=== PATIENT | female | born 1975 | race Asian ===

== ENCOUNTER → 2017-05-10 | Outpatient (CLI) | payer MEDICAID ==
[~2017-05-10] MED LIST: CHOL500050 PO; NAPR500T4 PO; OXYC10TA6 PO; no meds per pt.
== END | disposition home or self-care (01) ==
LOC: CVU 08:41
PROVIDERS: ATTEND Family Medicine
DX: I83.813 Varicose veins of bilateral lower extremities with pain (principal); R06.02 Shortness of breath
CPT/HCPCS: 71020; 93971

== ENCOUNTER 2017-07-10 09:52 | Day surgery (SDC) | payer MEDICAID ==
[~2017-07-10] VITALS: Ht 152.4 cm; Wt 66.6 kg
[~2017-07-10 09:52] MED LIST changes: +No meds per pt.
[2017-07-10 10:26] VITALS: BP 114/81
[2017-07-10] MEDS ORDERED: LACTATED RINGERS 1,000 ML IV SCH (10:28)
[2017-07-10] MEDS ORDERED: LIDOCAINE 1%, 2ML SQ PRN (10:30)
[2017-07-10] MEDS ORDERED: LIDOCAINE 1%, 2ML ONE (10:32)
[2017-07-10] MEDS ORDERED: LIDOCAINE 1%, 50ML ONE (12:28)
[2017-07-10] MEDS ORDERED: HEPARIN 1,000 UNITS/ML, 10ML ONE (12:28)
[2017-07-10] MEDS ORDERED: SODIUM BICARBONATE 1 MEQ/ML, 50ML VIAL ONE (12:28)
[2017-07-10] MEDS ORDERED: EPINEPHRINE 1 MG/ML, 1ML ONE (12:29)
[2017-07-10] MEDS ORDERED: MIDAZOLAM 1 MG/ML, 2ML ONE (12:31)
[2017-07-10] MEDS ORDERED: FENTANYL PF 100 MCG/2ML ONE ×3 (12:33→14:28)
[2017-07-10] MEDS ORDERED: PROPOFOL 10 MG/ML, 20ML ONE (12:52)
[2017-07-10] MEDS ORDERED: ONDANSETRON 2MG/ML, 2ML ONE (12:52)
[2017-07-10] MEDS ORDERED: SUCCINYLCHOLINE 20 MG/ML, 10ML ONE (12:52)
[2017-07-10] MEDS ORDERED: CEFAZOLIN 1,000 MG ONE (12:52)
[2017-07-10] MEDS ORDERED: DEXAMETHASONE 4 MG/ML, 1ML ONE (12:52)
[2017-07-10] MEDS ORDERED: ONDANSETRON 2MG/ML, 2ML IVPush PRN (13:00)
[2017-07-10] MEDS ORDERED: ALBUTEROL SULFATE 2.5 MG/3 ML NPPB PRN (13:00)
[2017-07-10] MEDS ORDERED: MEPERIDINE/PF 25MG/0.5ML IVPush PRN (13:00)
[2017-07-10] MEDS ORDERED: PROMETHAZINE 12.5 MG SUPP PR PRN (13:00)
[2017-07-10] MEDS ORDERED: MIDAZOLAM 1 MG/ML, 2ML IV PRN (13:00)
[2017-07-10] MEDS ORDERED: OXYcodone 5 MG/5 ML ORAL.SOL UDC PO PRN (13:00)
[2017-07-10] MEDS ORDERED: hydrALAzine 20 MG/ML, 1ML IV PRN (13:00)
[2017-07-10] MEDS ORDERED: HYDROmorphone 1 MG/ML, 1ML IV PRN (13:00)
[2017-07-10] MEDS ORDERED: LABETALOL 5MG/ML, 20ML IV PRN (13:00)
[2017-07-10] MEDS ORDERED: ACETAMINOPHEN 325 MG TABLET PO PRN (13:00)
[2017-07-10] MEDS ORDERED: ACETAMINOPHEN 650 MG/20.3 ML UDC ONE (14:28)
[2017-07-10] MEDS ORDERED: OXYcodone 5 MG/5 ML ORAL.SOL UDC ONE (14:28)
[2017-07-10] MEDS: FENTANYL PF 100 MCG/2ML IV PRN ×2 (14:30→14:45)
[2017-07-10] MEDS ORDERED: ONDANSETRON 2MG/ML, 2ML IVPush ONE (18:00)
== END 2017-07-10 18:15 | disposition home or self-care (01) ==
LOC: OUT 09:52
PROVIDERS: ATTEND Surgery
DX: I83.812 Varicose veins of left lower extremity with pain (principal); I87.8 Other specified disorders of veins
CPT/HCPCS: 36415; 36475; 37765; 84703; J0171; J0330; J0690; J1100; J1644; J2250; J2405; J2704; J3010; J3490; J7120; C1888

== ENCOUNTER → 2017-08-22 | Outpatient (CLI) | payer MEDICAID ==
[~2017-08-22] MED LIST changes: +NAPR-685 PO; -NAPR500T4 PO
== END | disposition home or self-care (01) ==
LOC: CVU 08:48
PROVIDERS: ATTEND Surgery
DX: I87.2 Venous insufficiency (chronic) (peripheral) (principal); I83.812 Varicose veins of left lower extremity with pain
CPT/HCPCS: 93971